=== PATIENT | male | born 1950 | race Two or more races ===

== ENCOUNTER 2019-06-10 18:47 | Emergency (ER) | payer MEDICARE, MEDICAID ==
[~2019-06-10] VITALS: Ht 167.6 cm; Wt 77.1 kg
[2019-06-10 19:09] VITALS: BP 162/80
--- NOTE | 2019-06-10 19:20 | Emergency Room Report ---
History of Present Illness General Chief Complaint: Flu Like Symptoms Source: Patient Present Illness HPI 69-year-old male with no significant past medical history who smokes cigarettes on daily basis here complaining of 1 week of cough and congestion. Has not taken medication for symptom relief. Denies history of asthma. Denies fever and chills, recent travel, abdominal pain, nausea vomiting, generalized body ache. Denies sore throat. Denies pleuritic chest pain. Denies drug use, alcohol intake. Sitting comfortably with stable vital signs. No wheezing auscultated. Denies chest pain, shortness of breath, palpitation, headache or dizziness Allergies: Coded Allergies: No Known Allergies (Unverified , 06/10/19) Patient History Past Medical History: see triage record Past Surgical History: none Pertinent Family History: none Social History: Reports: smoking Immunizations: UTD Reviewed Nursing Documentation: PMH: Agreed; PSxH: Agreed Nursing Documentation-PMH Past Medical History: No Stated History Review of Systems All Other Systems: negative except mentioned in HPI Physical Exam Vital Signs Date Time Temp Pulse Resp B/P (MAP) Pulse Ox O2 Delivery O2 Flow Rate FiO2 06/10/19 18:56 98.1 62 19 162/80 (107) 97 Room Air Sp02 EP Interpretation: reviewed, normal General Appearance: no apparent distress, alert, GCS 15, non-toxic Head: normocephalic, atraumatic Eyes: bilateral eye normal inspection, bilateral eye PERRL ENT: hearing grossly normal, normal pharynx, no angioedema, normal voice Neck: full range of motion, supple/symm/no masses Respiratory: chest non-tender, lungs clear, normal breath sounds, no rhonchi, no respiratory distress, no wheezing, speaking full sentences Cardiovascular #1: regular rate, rhythm, no edema, no murmur Gastrointestinal: normal bowel sounds, non tender, soft, non-distended, no guarding, no rebound Rectal: deferred Genitourinary: normal inspection, no CVA tenderness Musculoskeletal: back normal, normal range of motion, no calf tenderness, gait/ station normal, non-tender Neurologic: alert, motor strength/tone normal, oriented x3, sensory intact, responsive, speech normal Psychiatric: judgement/insight normal Skin: no rash Lymphatic: no adenopathy Medical Decision Making PA Attestation All my diagnosis and treatment plans were reviewed ad discussed with my supervising physician Dr. Muir Diagnostic Impression: Primary Impression: Pneumonitis ER Course 69-year-old male with no significant past medical history who smokes cigarettes on daily basis here complaining of 1 week of cough and congestion. Has not taken medication for symptom relief. Denies history of asthma. Denies fever and chills, recent travel, abdominal pain, nausea vomiting, generalized body ache. Denies sore throat. Denies pleuritic chest pain. Denies drug use, alcohol intake. Sitting comfortably with stable vital signs. No wheezing auscultated. Denies chest pain, shortness of breath, palpitation, headache or dizziness Ddx considered but are not limited to: bronchitis, PNA, URI viral, bacterial bronchitis, pneumonitis Vital signs: are WNL, pt. is afebrile H&PE are most consistent with: Pneumonitis most likely bacterial due to patient tobacco smoke history ORDERS: Chest x-ray, amoxicillin, guaifenesin ED INTERVENTIONS: None required at this time. DISCHARGE: At this time pt. is stable for d/c to home. Will provide printed patient care instructions, and any necessary prescriptions. Care plan and follow up instructions have been discussed with the patient prior to discharge. Patient to follow primary care provider, take medication as directed, avoid smoking tobacco, if worsening symptoms return to emergency room Chest X-Ray Diagnostic Results Chest X-Ray Diagnostic Results : Chest X-Ray Ordered: Yes # of Views/Limited/Complete: 1 View Indication: Shortness of Breath EP Interpretation: Yes PA Xray: Interpretation reviewed, by supervising MD, and agrees with findings. Interpretation: no consolidation, no effusion, no pneumothorax Impression: No acute disease Electronically Signed by: Arabella Jacobo PA-C Last Vital Signs Date Time Temp Pulse Resp B/P (MAP) Pulse Ox O2 Delivery O2 Flow Rate FiO2 06/10/19 19:09 98.1 89 19 162/80 97 Room Air Disposition: HOME, SELF-CARE Condition: Stable Scripts Guaifenesin* (GUAIFENESIN*) 100 Mg/5 Ml Liquid 5 ML ORAL Q6H, #120 ML 0 Refills Prov: Arabella Henderson 06/10/19 Amoxicillin* (AMOXIL*) 500 Mg Capsule 500 MG ORAL EVERY 12 HOURS for 10 Days, #20 CAP Prov: Arabella Henderson 06/10/19 Patient Instructions: Pneumonitis Additional Instructions: Take medication as directed, follow-up with your primary care provider, if worsening symptoms return to the emergency room Arabella Henderson Jun 10, 2019 19:20
[2019-06-10] MEDS ORDERED: GUAIFENESI100 MG/5 M ORAL (19:21)
[2019-06-10] MEDS ORDERED: AMOXICILLIN500 MG ORAL (19:21)
[2019-06-10 19:25] VITALS: BP 162/80
--- NOTE | 2019-06-11 13:00 | Diagnostic Imaging Report ---
Indication: Cough Comparison: None A single view chest radiograph was obtained. Findings: Cardiomediastinal appearance is within normal limits for age. The lungs are clear. Pulmonary vascularity is appropriate. The diaphragmatic contour is smooth and costophrenic angles are sharp. No pleural effusions are identified. The bones are unremarkable. Impression: No acute findings
== END 2019-06-10 19:25 | disposition home or self-care (01) ==
LOC: EMR 19:18
DX: J18.9 Pneumonia, unspecified organism (principal); F17.200 Nicotine dependence, unspecified, uncomplicated
CPT/HCPCS: 71045; 99283

== ENCOUNTER 2019-07-16 19:14 | Emergency (ER) | payer MEDICARE, MEDICAID ==
[~2019-07-16] VITALS: Ht 167.6 cm; Wt 70.3 kg
[~2019-07-16 19:14] MED LIST: AMOXICILLIN500 MG ORAL; GUAIFENESI100 MG/5 M ORAL
[2019-07-16] MEDS ORDERED: Ketorolac 30mg Inj IV ONE (19:45)
--- NOTE | 2019-07-16 19:53 | Emergency Room Report ---
History of Present Illness General Chief Complaint: Lower Extremity Injury Source: Patient Present Illness HPI Patient presents with 2 to 3 days right knee pain. He believes it is due to his gout. Several years ago he presented with bilateral knee pain to [facility] in the aspirated the joints and diagnosed with gout. He has been taking ibuprofen. He does not take any other medication for gout. The patient says that he has problems with high blood sugar. The patient denies fever chills. The right knee is red and warm. It was similar when he had the gout before. No trauma. He rates the pain 10/10 at this time worse when he tries to move his knee. Aching and pressure. Denies being diabetic but does take medication. He does not check his blood sugars. No sore throat, chest pain, palpitations, nausea, vomiting, diarrhea, dysuria, abdominal pain, shortness of breath, depression, anxiety, visual changes, dizziness, headache. 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 Nursing Documentation: PMH: Agreed; PSxH: Agreed Nursing Documentation-PMH Past Medical History: No History, Except For Review of Systems All Other Systems: negative except mentioned in HPI Physical Exam Vital Signs Date Time Temp Pulse Resp B/P (MAP) Pulse Ox O2 Delivery O2 Flow Rate FiO2 07/16/19 19:25 98.4 85 176/89 (118) 96 Room Air Sp02 EP Interpretation: reviewed, normal General Appearance: well appearing, no apparent distress, GCS 15, non-toxic Head: normocephalic Eyes: bilateral eye normal inspection, bilateral eye PERRL, bilateral eye EOMI ENT: moist mucus membranes Neck: supple Respiratory: lungs clear, normal breath sounds Cardiovascular #1: regular rate, rhythm Cardiovascular #2: 2+ radial (R), 2+ dorsalis pedis (R) Gastrointestinal: normal inspection, normal bowel sounds, non tender, no mass, non-distended Musculoskeletal: back normal, no calf tenderness, pelvis stable, tender - Right knee, swelling - Right knee, some effusion Neurologic: alert, oriented x3, grossly normal Psychiatric: mood/affect normal Skin: warm/dry, other - Erythema right knee no skin lesions Medical Decision Making Diagnostic Impression: Primary Impression: Gout attack Qualified Codes: M10.9 - Gout, unspecified ER Course Patient presents with right knee pain. Differential includes septic joint, gout , pseudogout, renal failure, dehydration and cellulitis. Evaluation with labs. Patient will be treated with IV hydration and analgesia. Patient will also be given a dose of colchicine. As there is no trauma imaging is not indicated. Labs with normal white count. Uric acid is normal. Patient improved with treatment. Range of motion and proved. Decreased pain however paper twister tender. Based on the lack of fever and the clinical exam, improvement and history septic joint is less likely. Discussed treatment plan with patient. Discussed the need for return if pain not improved, fevers or chills. Also discussed the need for outpatient follow-up. Patient is stable for outpatient observation and treatment. Laboratory Tests Test 07/16/19 20:00 White Blood Count 10.3 K/UL (4.8-10.8) Red Blood Count 4.80 M/UL (4.70-6.10) Hemoglobin 14.7 G/DL (14.2-18.0) Hematocrit 44.1 % (42.0-52.0) Mean Corpuscular Volume 92 FL (80-99) Mean Corpuscular Hemoglobin 30.7 PG (27.0-31.0) Mean Corpuscular Hemoglobin Concent 33.4 G/DL (32.0-36.0) Red Cell Distribution Width 12.1 % (11.6-14.8) Platelet Count 258 K/UL (150-450) Mean Platelet Volume 6.6 FL (6.5-10.1) Neutrophils (%) (Auto) 70.3 % (45.0-75.0) Lymphocytes (%) (Auto) 19.9 % (20.0-45.0) L Monocytes (%) (Auto) 6.6 % (1.0-10.0) Eosinophils (%) (Auto) 1.5 % (0.0-3.0) Basophils (%) (Auto) 1.7 % (0.0-2.0) Prothrombin Time 9.9 SEC (9.30-11.50) Prothrombin Time INR 0.9 (0.9-1.1) Activated Partial Thromboplast Time 26 SEC (23-33) Urine Color Pale yellow Urine Appearance Clear Urine pH 5 (4.5-8.0) Urine Specific [place] 1.020 (1.005-1.035) Urine Protein Negative (NEGATIVE) Urine Glucose (UA) Negative (NEGATIVE) Urine Ketones Negative (NEGATIVE) Urine Blood 1+ (NEGATIVE) H Urine Nitrite Negative (NEGATIVE) Urine Bilirubin Negative (NEGATIVE) Urine Urobilinogen Normal MG/DL (0.0-1.0) Urine Leukocyte Esterase Negative (NEGATIVE) Urine RBC 5-10 /HPF (0 - 0) H Urine WBC 0-2 /HPF (0 - 0) Urine Squamous Epithelial Cells Occasional /LPF Urine Bacteria Occasional /HPF (NONE) Urine Mucus Few /LPF (NONE/OCC) H Sodium Level 141 MMOL/L (136-145) Potassium Level 3.6 MMOL/L (3.5-5.1) Chloride Level 105 MMOL/L (98-107) Carbon Dioxide Level 27 MMOL/L (21-32) Anion Gap 9 mmol/L (5-15) Blood Urea Nitrogen 15 mg/dL (7-18) Creatinine 0.9 MG/DL (0.55-1.30) Estimate Glomerular Filtration Rate > 60 mL/min (>60) Glucose Level 133 MG/DL (74-106) H Uric Acid 5.7 MG/DL (2.6-7.2) Calcium Level 9.0 MG/DL (8.5-10.1) Total Bilirubin 0.3 MG/DL (0.2-1.0) Aspartate Amino Transferase (AST) 17 U/L (15-37) Alanine Aminotransferase (ALT) 24 U/L (12-78) Alkaline Phosphatase 73 U/L (46-116) Total Creatine Kinase 126 U/L (26-308) Troponin I 0.000 ng/mL (0.000-0.056) Pro-B-Type Natriuretic Peptide 46 pg/mL (0-125) Total Protein 8.2 G/DL (6.4-8.2) Albumin 3.9 G/DL (3.4-5.0) Globulin 4.3 g/dL Albumin/Globulin Ratio 0.9 (1.0-2.7) L Last Vital Signs Date Time Temp Pulse Resp B/P (MAP) Pulse Ox O2 Delivery O2 Flow Rate FiO2 3/13/20 22:00 98.5 85 176/89 96 Room Air Status: improved Disposition: HOME, SELF-CARE Condition: Improved Scripts Hydrocodone Bit/Acetaminophen 5-325* (NORCO 5-325 TABLET*) 1 Each Tablet 1 TAB ORAL Q6H PRN for FOR PAIN, #10 TAB 0 Refills Prov: Pan Bullard MD 07/16/19 Indomethacin (INDOMETHACIN) 25 Mg Capsule 25 MG PO Q8HR, #20 CAP 1 Refill Prov: Pan Bullard MD 07/16/19 Colchicine (Colchicine) 0.6 Mg Capsule 0.6 MG PO Q6HR PRN for joint pain, #20 CAP 1 Refill Prov: Pan Bullard MD 07/16/19 Pan Bullard MD Jul 16, 2019 19:53
--- NOTE | 2019-07-16 20:00 | NUR ---
ED Nurse Note: Pt ambulated to ED from home c/o R knee pain 10/10 with swelling and redness, pt has had gout previously and believes it is gout. VSS, pt is poor historian, unaware of other past medical history. Pt placed in gown, ERMD at bedside
[2019-07-16 20:41] LABS: APPEARANCE,URINE CLEAR; BILIRUBIN, URINE NEGATIVE (NEGATIVE); COLOR,URINE PALE YELLOW; GLUCOSE, URINE (UA) NEGATIVE (NEGATIVE); KETONES,URINE NEGATIVE (NEGATIVE); LEUKOCYTE ESTERASE ,URINE NEGATIVE (NEGATIVE); NITRITE,URINE NEGATIVE (NEGATIVE); PH,URINE 5 (4.5-8.0); PROTEIN,URINE NEGATIVE (NEGATIVE); UROBILINOGEN,URINE NORMAL MG/DL (0.0-1.0)
[2019-07-16 20:54] LABS: BASOPHILS % (AUTO) 1.7 % (0.0-2.0); EOSINOPHILS % (AUTO) 1.5 % (0.0-3.0); HEMATOCRIT 44.1 % (42.0-52.0); HEMOGLOBIN 14.7 G/DL (14.2-18.0); INR 0.9 (0.9-1.1); LYMPHOCYTES % (AUTO) 19.9 % (20.0-45.0); MEAN CORPUSCULAR VOLUME 92 FL (80-99); MONOCYTES % (AUTO) 6.6 % (1.0-10.0); NEUTROPHILS % (AUTO) 70.3 % (45.0-75.0); PLATELET COUNT 258 K/UL (150-450); RED CELL DISTRIBUTION WIDTH 12.1 % (11.6-14.8); WHITE BLOOD COUNT 10.3 K/UL (4.8-10.8)
[2019-07-16 20:59] LABS: ANION GAP 9 mmol/L (5-15); BLOOD UREA NITROGEN 15 mg/dL (7-18); CARBON DIOXIDE 27 MMOL/L (21-32); CHLORIDE 105 MMOL/L (98-107); CREATININE 0.9 MG/DL (0.55-1.30); POTASSIUM 3.6 MMOL/L (3.5-5.1); SODIUM 141 MMOL/L (136-145)
[2019-07-16 21:09] LABS: ALANINE AMINOTRANSFERASE 24 U/L (12-78); ALBUMIN 3.9 G/DL (3.4-5.0); ALBUMIN/GLOBULIN RATIO 0.9 (1.0-2.7); ALKALINE PHOSPHATASE 73 U/L (46-116); ASPARTATE AMINO TRANSFERASE 17 U/L (15-37); BILIRUBIN,TOTAL 0.3 MG/DL (0.2-1.0); CREATINE KINASE 126 U/L (26-308)
[2019-07-16] MEDS ORDERED: NORCO 5-325 TA1 EAC1 ORAL (21:42)
[2019-07-16] MEDS ORDERED: COLCHICINE0.6 M1 PO (21:42)
[2019-07-16] MEDS ORDERED: INDOMETHACIN25 MG PO (21:42)
[2019-07-16 22:00] VITALS: BP 176/89
--- NOTE | 2019-07-16 22:00 | NUR ---
ER DISCHARGE NOTE: Patient is cleared to be discharged per ERMD, pt is aox4, on room air, with stable vital signs. pt was given dc and prescription instructions, pt was able to verbalize understanding, pt id band and iv site removed without complications. pt is able to ambulate with steady gait. pt took all belongings.
== END 2019-07-16 22:00 | disposition home or self-care (01) ==
LOC: EMR 19:44
DX: M10.9 Gout, unspecified (principal)
CPT/HCPCS: 36415; 80053; 81003; 82550; 82962; 83880; 84484; 84550; 85025; 85610; 85730; 93005; 96361; 96374; 99284; J1885; J7030